=== PATIENT | female | born 1935 | race Caucasian/White ===

== ENCOUNTER 2016-07-17 06:52 | Emergency (ER) | payer MEDICARE, OTHER ==
[2016-07-17 06:59] VITALS: RESP 20; TEMP 96.3
[2016-07-17 07:04] VITALS: BP 140/53; PULSE 61; O2SAT 94
[2016-07-17] MEDS ORDERED: LIDOCAINE HCL 1% MPF SOL ONE (07:39)
[2016-07-17] MEDS ORDERED: LIDOCAINE HCL 1% MDV SOL SC ONE (07:40)
== END 2016-07-17 09:40 | disposition home or self-care (01) | DRG 605 ==
LOC: ED 06:52
DX: S81.811A Laceration without foreign body, right lower leg, initial encounter (principal); L03.115 Cellulitis of right lower limb; W31.89XA Contact with other specified machinery, initial encounter
CPT/HCPCS: 99283; G0168; J2001